=== PATIENT | female | born 1975 | race Caucasian/White ===

== ENCOUNTER 2017-04-24 10:40 | Inpatient (IN) | payer MEDICAID, OTHER ==
[~2017-04-24] VITALS: Ht 162.6 cm; Wt 47.2 kg
--- NOTE | 2017-04-24 10:45 | NUR ---
called patient to triage, patient is not in ed waiting area. per pt's friend "vega went to get snaks and soda from cafeteria".
--- NOTE | 2017-04-24 11:07 | NUR ---
PT TO ER BED 09. STATES ANXIOUS, GENERALIZED MALAISE, WEAKNESS X 10 DAYS POST SUBOXONE WIDRAWAL. DENIES SI/HI. PLACED ON MONITOR. VSS. MOTHER AT BEDSIDE. AWAITING MD STONE.
--- NOTE | 2017-04-24 11:18 | NUR ---
DR MIX AT BEDSIDE FOR EVAL.
--- NOTE | 2017-04-24 11:28 | NUR ---
IV LINE STARTED BLOOD DRAWN AND SENT TO LAB.
[2017-04-24] MEDS ORDERED: LORAZEPAM INJ 2 MG/ML VIAL IV ONE (11:30)
[2017-04-24] MEDS ORDERED: IV NS 0.9% 1,000 ML BAG IV ONE (11:30)
[2017-04-24] MEDS ORDERED: LORAZEPAM INJ 2 MG/ML VIAL ONE (11:30)
[2017-04-24] MEDS ORDERED: IV SET PRIMARY 1 EA INFUS.SET MC ONE (11:30)
[2017-04-24] MEDS ORDERED: IV NS 0.9% 1,000 ML ONE (11:30)
[2017-04-24 11:31] LABS: BASOPHILS # (AUTO) 0.2 /CMM (0.0-0.2); BASOPHILS % (AUTO) 2.5 % (0.0-2.0); EOSINOPHILS % (AUTO) 0.4 % (0.0-6.0); HEMATOCRIT 38 % (33-45); HEMOGLOBIN 12.4 g/dL (11.5-14.8); LYMPHOCYTES # (AUTO) 1.5 /CMM (0.8-4.8); LYMPHOCYTES % (AUTO) 18.1 % (20.0-44.0); MEAN CORPUSCULAR HEMOGLOBIN 29 PG (26.0-33.0); MEAN CORPUSCULAR HGB CONC 33 g/dl (31.0-36.0); MEAN CORPUSCULAR VOLUME 87 fL (82-100); MONOCYTES # (AUTO) 0.5 /CMM (0.1-1.30); MONOCYTES % (AUTO) 5.8 % (2.0-12.0); NEUTROPHILS # (AUTO) 5.9 /CMM (1.8-8.9); NEUTROPHILS % (AUTO) 73.2 % (43.0-81.0); PLATELET COUNT (AUTO) 509 /CMM (150-450); RDW COEFFICIENT OF VARIATION 13.7 (11.5-15.0); RED BLOOD CELL COUNT(AUTO) 4.37 MIL/uL (4.0-5.2); WHITE BLOOD COUNT (AUTO) 8.1 K/uL (4.3-11.0)
[2017-04-24 11:35] LABS: BILIRUBIN,URINE SMALL (NEGATIVE); BLOOD, URINE Moderate Ery/uL (NEGATIVE); COLOR,URINE Yellow (YELLOW); KETONES,URINE Negative (NEGATIVE); LEUKOCYTE ESTERASE ,URINE Negative (NEGATIVE); NITRITE, URINE Negative (NEGATIVE); PROTEIN,URINE Trace mg/dl (NEGATIVE); UGLUCOSE Negative (NEGATIVE); UROBILINOGEN,URINE 0.2 EU/dL (0.2)
[2017-04-24 11:36] LABS: APPEARANCE,URINE Hazy (CLEAR)
[2017-04-24 11:41] LABS: CALCIUM, SERUM 8.8 mg/dL (8.5-10.1); CREATININE 0.9 mg/dL (0.6-1.3); POTASSIUM 3.3 mmol/L (3.5-5.1)
[2017-04-24 11:46] LABS: ALBUMIN 3.5 g/dL (3.4-5.0); BILIRUBIN,DIRECT 0.1 mg/dL (0.0-0.2); BILIRUBIN,TOTAL 0.4 mg/dL (0.2-1.0); TOTAL PROTEIN, SERUM 6.9 g/dL (6.4-8.2)
[2017-04-24 11:46] LABS: PREGNANCY TEST URINE QUAL NEGATIVE (NEGATIVE)
[2017-04-24 11:48] LABS: RBC,URINE 0-3 /HPF (0-2); WBC,URINE 0-3 /HPF (0-3)
[2017-04-24 11:49] LABS: BACTERIA,URINE None seen /HPF (None Seen); MUCUS,URINE Few /LPF (None Seen); SQUAMOUS EPITHELIAL CELL,UR Few /HPF (None Seen)
[2017-04-24] MEDS ORDERED: HALOPERIDOL LACTATE INJ 5 MG/ML VIAL ONE (12:17)
--- NOTE | 2017-04-24 12:20 | NUR ---
CALLED DERRICK VALERA, SOAPSTONER, FOR EVALUATION OF PATIENT
--- NOTE | 2017-04-24 12:26 | NUR ---
PER MOTHER, PT IS HALLUCINATING, SEEING STUFF. DR MIX AWARE. MEDICATED ORDERED.
[2017-04-24] MEDS ORDERED: HALOPERIDOL LACTATE INJ 5 MG/ML VIAL IM ONE ×2 (12:30→16:30)
--- NOTE | 2017-04-24 12:48 | NUR ---
ART PRODUCT SUPPORT TECHNICIAN AT BEDSIDE FOR PSYCH EVAL.
--- NOTE | 2017-04-24 13:02 | NUR ---
US TECH AT BEDSIDE FOR GALLBLADDER ULTRASOUND.
--- NOTE | 2017-04-24 13:56 | NUR ---
PAGED DR CONNER FOR PANEL
--- NOTE | 2017-04-24 13:59 | NUR ---
PATIENT ASSIGNED TO 304-2 TELE NURSE IS NATHAN
--- NOTE | 2017-04-24 14:34 | NUR ---
REPORT TO NATHAN. PT AWAITING TRANSFER TO FLOOR.
[2017-04-24 15:30] VITALS: BP 113/56
--- NOTE | 2017-04-24 15:30 | NUR ---
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 PATIENT BROUGHT IN TO TELE UNIT FROM ER, PATIENT APPEARS ANXIOUS AND CONFUSED. AMBULATORY. ON ROOM AIR, NO SOB NOTED. V/S TAKEN AND RECORDED. LEADS APPLIED FOR TELE MONITOR. PLACE CALL LIGHT WITHIN REACH. BED LOW AND LOCKED. PATIENTS MOTHER AT THE BEDSIDE. WILL CONT TO MONITOR PATIENT. NOTIFIED DR. CONNER FOR ADMISSION.
[2017-04-24 16:00] VITALS: BP 113/56
--- NOTE | 2017-04-24 16:05 | NUR ---
PATIENT IS SEEN BY DR. DALILA MD ORDERED REGULAR DIET AND NICODERM PATCH, NOTED AND ACKNOWLEDGED.
[2017-04-24] MEDS ORDERED: HALOPERIDOL LACTATE INJ 5 MG/ML VIAL IM PRN (16:30)
[2017-04-24] MEDS ORDERED: MAG HYDROX/AL HYDROX/SIMETH 30 ML UDC PO PRN (16:30)
[2017-04-24] MEDS ORDERED: ACETAMINOPHEN 325 MG TABLET PO PRN (16:30)
[2017-04-24] MEDS ORDERED: Z GUARD REMEDY 2 OZ OINT TP PRN (16:30)
[2017-04-24] MEDS ORDERED: ONDANSETRON HCL/PF 4 MG/2 ML VIAL IVP PRN (16:30)
[2017-04-24] MEDS ORDERED: MAGNESIUM HYDROXIDE 30 ML UDC PO PRN (16:30)
[2017-04-24] MEDS ORDERED: POTASSIUM CHLORIDE 20 MEQ TAB.PRT.SR PO SCH (16:30)
[2017-04-24] MEDS ORDERED: IV SET PRIMARY PUMP SET 1 EA INFUS.SET MC ONE (16:40)
[2017-04-24] MEDS: IV NS 0.9% 1,000 ML IV SCH (16:58)
--- NOTE | 2017-04-24 19:30 | NUR ---
DEAN OF STUDENTS NOTES PATIENT IN BED, NOT IN DISTRESS. A/O X3 WITH EPISODE OF CONFUSION. ON TELE MONITOR SINUS NALINI HR 57. NO C/O PAIN OR ANY DISCOMFORT. IV NS INFUSING AT 100ML/HR, TOLERATING WELL. CALL LIGHT WITHIN REACH. ENDORSED TO TERMINAL OPERATIONS MANAGER RN FOR CONTINUITY OF CARE.
--- NOTE | 2017-04-24 19:30 | NUR ---
RN NOTE; RECEIVE PT IN BED AWAKE AND ALERT. W/ FAMILY AT THE BED SIDE. BREATHING EVENLY. NO SOB. NAD. NO EPISODE OF AGITATION OR HALLUCINATIONS. NO C/O PAIN OR DISCOMFORT. ON ONGOING IVF HYDRATION. NEEDS ATTENDED . CALL LIGHT WITHIN REACH. WILL CONT TO MONITOR.
[2017-04-24 20:00] VITALS: BP 100/56
[2017-04-25 06:27] LABS: BASOPHILS # (AUTO) 0.1 /CMM (0.0-0.2); BASOPHILS % (AUTO) 0.6 % (0.0-2.0); EOSINOPHILS # (AUTO) 0.2 /CMM (0.0-0.7); EOSINOPHILS % (AUTO) 1.9 % (0.0-6.0); HEMATOCRIT 34 % (33-45); HEMOGLOBIN 11.5 g/dL (11.5-14.8); LYMPHOCYTES # (AUTO) 1.7 /CMM (0.8-4.8); MEAN CORPUSCULAR HEMOGLOBIN 30 PG (26.0-33.0); MEAN CORPUSCULAR HGB CONC 34 g/dl (31.0-36.0); MEAN CORPUSCULAR VOLUME 89 fL (82-100); MONOCYTES # (AUTO) 0.4 /CMM (0.1-1.30); MONOCYTES % (AUTO) 4.2 % (2.0-12.0); NEUTROPHILS % (AUTO) 75.3 % (43.0-81.0); PLATELET COUNT (AUTO) 430 /CMM (150-450); RDW COEFFICIENT OF VARIATION 14.6 (11.5-15.0); RED BLOOD CELL COUNT(AUTO) 3.83 MIL/uL (4.0-5.2); WHITE BLOOD COUNT (AUTO) 9.3 K/uL (4.3-11.0)
[2017-04-25] MEDS: IV NS 0.9% 1,000 ML IV SCH (06:28)
--- NOTE | 2017-04-25 06:32 | NUR ---
RN NOTE; PT IN BED AWAKE AND RESPONSIVE. CONFUSED. W/ EPISODES OF ANXIETY. BREATHING EVENLY. NO SOB. NO DISTRESS . SKIN WARM AND DRY. NO ACUTE CHANGES OVER THE NIGHT . SEDATIVE MEDS WERE AVOIDED . REMAINED UNDER CLOSE SUPERVISION FOR FALL RISK AND SAFETY . NEEDS ATTENDED. CALL LIGHT WITHIN REACH. WILL CONT TO MONITOR AND WILL ENDORSE TO AM SHIFT FOR LUIS.
[2017-04-25 06:51] LABS: CALCIUM, SERUM 8.2 mg/dL (8.5-10.1); CREATININE 0.7 mg/dL (0.6-1.3); PHOSPHORUS 3.1 mg/dL (2.5-4.9); POTASSIUM 3.9 mmol/L (3.5-5.1)
--- NOTE | 2017-04-25 07:00 | NUR ---
MS RN INITIAL NOTE REPORT RECEIVED AT THE BEDSIDE. PATIENT IS RESTING COMFORTABLY IN BED. NO SOB OR DISTRESS NOTED AT THIS TIME. PATIENT DENIES PAIN. BED IN A LOW POSITION, CALL LIGHT WITHIN PATIENT REACH, MOTHER IS AT THE BEDSIDE. WILL CONTINUE TO MONITOR.
[2017-04-25] MEDS: PANTOPRAZOLE 40 MG TABLET.DR PO SCH (07:30)
[2017-04-25 08:00] VITALS: BP 112/74
[2017-04-25] MEDS ORDERED: NICOTINE PATCH (21MG) 21 MG PATCH.TD24 TD SCH (09:00)
[2017-04-25] MEDS: VENLAFAXINE XR 75 MG CAP.SR.24H PO SCH (11:19)
--- NOTE | 2017-04-25 14:01 | NUR ---
Social service consult requested by Dr. Hobbs for substance abuse. Per H&P report by Dr. Hobbs, Pt. is a 41-year-old female with history of opiate abuse, long addiction to prescription pills. Pt's mother was at bedside. Over the past year she has been on Suboxone intermittently. Mother states that she last saw patient days ago. Mom returned home to find her agitated, confused and twitching. Patient was brought into emergency room and was given Ativan which seemed to provoke the confusion and hallucinations, then received Haldol. SW met with pt. bedside. Pt. is alert and oriented x 2. Pt's mother was bedside. Pt. appeared lethargic, confused and was twitching frequently during the assessment. Pt. is single. Pt. has a 21 year old son that resides in [place]. 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 Pt. appeared confused every now and then, babbling words that were not understandable. Pt. denies cocaine and methamphetamine use. Pt. does smoke marijuana as a sleeping aide. Pt. has a history of Opiate addiction and last used opiates on May 29. Pt. is taking Suboxone and reduced her dosage on her own accord without a doctor's recommendation. Pt. has a history of Depression and was seen by [facility] psychiatrist Dr. Hinton. Pt. states she does sees an outpatient therapist and psychiatrist. SW encouraged pt. to follow up with her therapist and psychiatrist once discharged from the hospital. Pt. was in inpatient detox program at [facility] for a day in December 2016 and left the program. Pt. denies suicidal/homicidal ideations and visual/auditory hallucinations at this time. Pt. has no history of psychiatric hospitalizations. Pt's mother is very supportive and resides with her. No social service needs are required at this time. SW will re-assess if needed.
[2017-04-25 16:00] VITALS: BP 130/82
--- NOTE | 2017-04-25 17:32 | NUR ---
RN NOTES PATIENT ASKED TO HAVE IV INFUSION STOPPED WHILE SHE IS EATING. WHEN PATIENT IS FINISHED, WILL HANG A NEW BAG AND RECONNECT.
[2017-04-25] MEDS: IV NS 0.9% 1,000 ML IV PRN (18:06)
--- NOTE | 2017-04-25 18:51 | NUR ---
MS RN CLOSING NOTES NO SIGNIFICANT CHANGES IN PATIENT CONDITION THROUGHOUT THE SHIFT. NO SOB OR DISTRESS NOTED AT THIS TIME. PATIENT DENIES PAIN. BED IN A LOW POSITION, CALL LIGHT WITHIN PATIENT REACH, MOTHER AT THE BEDSIDE. WILL ENDORSE FOR LUIS.
[2017-04-25 20:00] VITALS: BP 113/70
[2017-04-25 20:41] VITALS: BP 113/70
--- NOTE | 2017-04-26 06:22 | NUR ---
MS RN NOTE PATIENT STABLE. IV DISLODGED. NEW #20 IV LINE PLACED TO UMA. FLUSHING WELL. NO INFILTRATION OR REDNESS NOTED. ALL NEEDS MET AND ATTENDED TO. WILL ENDORSE TO DAY SHIFT FOR LUIS.
--- NOTE | 2017-04-26 07:00 | NUR ---
MS RN INITIAL NOTES REPORT RECEIVED AT THE BEDSIDE. PATIENT IS RESTING COMFORTABLY IN BED. NO SOB OR DISTRESS NOTED AT THIS TIME. PATIENT DENIES PAIN. BED IN A LOW POSITION, CALL LIGHT WITHIN PATIENT REACH, MOTHER IS AT THE BEDSIDE. WILL CONTINUE TO MONITOR.
[2017-04-26 07:04] LABS: CALCIUM, SERUM 8.6 mg/dL (8.5-10.1); CREATININE 0.6 mg/dL (0.6-1.3); POTASSIUM 3.7 mmol/L (3.5-5.1)
[2017-04-26] MEDS: VENLAFAXINE XR 75 MG CAP.SR.24H PO SCH (08:03)
[2017-04-26] MEDS: PANTOPRAZOLE 40 MG TABLET.DR PO SCH (08:03)
[2017-04-26] MEDS: IV NS 0.9% 1,000 ML IV PRN (08:03)
--- NOTE | 2017-04-26 08:05 | NUR ---
RN NOTE HOLDING PATIENT NICOTINE PATCH FOR NOW IS PATIENT REQUEST. PATIENT STATES SHE MAY WANT IT LATER.
[2017-04-26] MEDS ORDERED: VENL75CA56 PO (08:20)
--- NOTE | 2017-04-26 11:31 | NUR ---
MS RECRUIT INSTRUCTOR NOTE DISCHARGE INSTRUCTIONS GIVEN TO THE PATIENT AND HER MOTHER AND ABLE TO UNDERSTAND. ALL PAPERWORK SIGNED AND BELONGINGS ACCOUNTED FOR. PRESCRIPTION GIVEN TO THE PATIENT. NO SOB OR DISTRESS NOTED AT THIS TIME. PATIENT DENIES PAIN. PATIENT TO FOLLOW UP WITH HER PSYCHIATRIST THIS WEEK. PATIENT LEFT IN STABLE CONDITION, TO HOME.
== END 2017-04-26 11:15 | disposition home or self-care (01) | DRG 52 ==
LOC: ER 10:41 → TELE 14:27 → MED 21:20
PROVIDERS: ADMIT Internal Medicine; ATTEND Internal Medicine
DX: G92 Toxic encephalopathy (principal); F11.20 Opioid dependence, uncomplicated; E86.0 Dehydration; E87.6 Hypokalemia; Z72.0 Tobacco use; F32.9 Major depressive disorder, single episode, unspecified; Z71.6 Tobacco abuse counseling; R78.5 Finding of other psychotropic drug in blood; T50.905A Adverse effect of unspecified drugs, medicaments and biological substances, initial encounter; Y92.009 Unspecified place in unspecified non-institutional (private) residence as the place of occurrence of the external cause
CPT/HCPCS: 36415; 76705-TC; 80048-TC; 80076-TC; 80305; 81000-TC; 83690-TC; 83735-TC; 84100-TC; 84703-TC; 85025-TC; 87081-TC; A4606; G0480; J1630; J2060; J7030; Z7610

== ENCOUNTER 2017-09-17 18:12 | Emergency (ER) | payer SELFPAY ==
[~2017-09-17] VITALS: Ht 162.6 cm; Wt 43.1 kg
[~2017-09-17 18:12] MED LIST: VENL75CA56 PO
--- NOTE | 2017-09-17 18:35 | NUR ---
Presents to ER c/o left sided flank pain x 1 week. Denies uti symptoms. a/ox 4. breathing even and unlabored. no sob. vitals stable. safety and comfort measures in place. awaiting md orders.
[2017-09-17] MEDS ORDERED: IV NS 0.9% 1,000 ML BAG IV ONE (19:00)
[2017-09-17] MEDS ORDERED: ACETAMINOPHEN ES 500 MG TABLET PO ONE (19:00)
[2017-09-17] MEDS ORDERED: ACETAMINOPHEN ES 500 MG TABLET ONE (19:06)
[2017-09-17 19:10] LABS: BASOPHILS # (AUTO) 0.2 /CMM (0.0-0.2); EOSINOPHILS # (AUTO) 0.1 /CMM (0.0-0.7); EOSINOPHILS % (AUTO) 1.1 % (0.0-6.0); HEMATOCRIT 29 % (33-45); HEMOGLOBIN 9.4 g/dL (11.5-14.8); LYMPHOCYTES # (AUTO) 1.2 /CMM (0.8-4.8); LYMPHOCYTES % (AUTO) 11.2 % (20.0-44.0); MEAN CORPUSCULAR HEMOGLOBIN 26 PG (26.0-33.0); MEAN CORPUSCULAR HGB CONC 32 g/dl (31.0-36.0); MEAN CORPUSCULAR VOLUME 80 fL (82-100); MONOCYTES # (AUTO) 0.7 /CMM (0.1-1.30); NEUTROPHILS # (AUTO) 8.4 /CMM (1.8-8.9); NEUTROPHILS % (AUTO) 78.7 % (43.0-81.0); PLATELET COUNT (AUTO) 695 /CMM (150-450); RDW COEFFICIENT OF VARIATION 14.7 (11.5-15.0); RED BLOOD CELL COUNT(AUTO) 3.62 MIL/uL (4.0-5.2); WHITE BLOOD COUNT (AUTO) 10.6 K/uL (4.3-11.0)
--- NOTE | 2017-09-17 19:10 | NUR ---
new iv started on lac. 20 g. blood drawn and sent to lab.
[2017-09-17 19:19] LABS: APPEARANCE,URINE Clear (CLEAR); BILIRUBIN,URINE Negative (NEGATIVE); BLOOD, URINE Large Ery/uL (NEGATIVE); COLOR,URINE Yellow (YELLOW); KETONES,URINE Trace (NEGATIVE); LEUKOCYTE ESTERASE ,URINE Negative (NEGATIVE); NITRITE, URINE Negative (NEGATIVE); PROTEIN,URINE Trace mg/dl (NEGATIVE); UGLUCOSE Negative (NEGATIVE)
[2017-09-17 19:21] LABS: CALCIUM, SERUM 8.8 mg/dL (8.5-10.1); CREATININE 0.6 mg/dL (0.6-1.3); POTASSIUM 3.9 mmol/L (3.5-5.1)
[2017-09-17 19:26] LABS: ALBUMIN 2.4 g/dL (3.4-5.0); BILIRUBIN,TOTAL 0.1 mg/dL (0.2-1.0); TOTAL PROTEIN, SERUM 6.7 g/dL (6.4-8.2)
[2017-09-17 19:29] LABS: BACTERIA,URINE Few /HPF (None Seen); RBC,URINE NONE SEEN /HPF (0-2); SQUAMOUS EPITHELIAL CELL,UR Few /HPF (None Seen); WBC,URINE NONE SEEN /HPF (0-3)
[2017-09-17 19:30] LABS: URINE AMORPHOUS URATE Moderate /HPF (None Seen)
--- NOTE | 2017-09-17 19:30 | NUR ---
report given to jack lindsay for luis.
[2017-09-17] MEDS ORDERED: IV NS 0.9% 250 ML IV ONE (19:39)
[2017-09-17] MEDS ORDERED: IOHEXOL-300 100 ML VIAL IV ONE (19:39)
[2017-09-17 21:21] VITALS: BP 102/70
--- NOTE | 2017-09-17 21:21 | NUR ---
IV removed. Catheter intact and site benign. Pressure and 4x4 applied to site. No bleeding noted. Patient discharged to home in stable condition. Written and verbal after care instructions given. Patient verbalizes understanding of instruction. Patient is ambulatory with a steady gait, no further complaints. Instructed not to drive. Accompanied by family.
== END 2017-09-17 21:22 | disposition home or self-care (01) ==
LOC: ER 18:19
DX: R10.32 Left lower quadrant pain (principal); D50.9 Iron deficiency anemia, unspecified; K63.9 Disease of intestine, unspecified; F10.10 Alcohol abuse, uncomplicated; F17.200 Nicotine dependence, unspecified, uncomplicated; F11.10 Opioid abuse, uncomplicated
CPT/HCPCS: 36415; 74160; 80048; 80076; 81001; 83690; 84703; 85025; 96360; 99285; A4606; J7030; J7050; Q9967; Z7610; 81000-TC

== ENCOUNTER 2017-09-21 12:12 | Emergency (ER) | payer SELFPAY ==
[~2017-09-21] VITALS: Ht 162.6 cm; Wt 45.4 kg
[2017-09-21 12:15] VITALS: BP 102/72
== END 2017-09-21 12:51 | disposition home or self-care (01) ==
LOC: ER 12:14
DX: R10.9 Unspecified abdominal pain (principal); F17.200 Nicotine dependence, unspecified, uncomplicated
CPT/HCPCS: 99281; A4606; Z7610; Z7502

== ENCOUNTER 2017-09-22 13:15 | Emergency (ER) | payer SELFPAY ==
[~2017-09-22] VITALS: Ht 162.6 cm; Wt 45.4 kg
[2017-09-22 13:15] VITALS: BP 104/73
--- NOTE | 2017-09-22 14:07 | NUR ---
CALLED DR HONG'S OFFICE, WAS PAGED.
== END 2017-09-22 15:27 | disposition home or self-care (01) ==
LOC: ER 13:20
DX: R10.9 Unspecified abdominal pain (principal); F17.200 Nicotine dependence, unspecified, uncomplicated
CPT/HCPCS: 99281; A4606; Z7610; Z7502